=== PATIENT | male | born 2005 | race African-American/Black ===

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

== ENCOUNTER 2024-11-01 06:04 | Emergency (ER) | payer OTHER, SELFPAY ==
--- OUTSIDE RECORDS SUMMARY | 2024-11-01 06:05 | XMS_ITS | Clinical Summary ---
Author Organization [facility] Address [address] [place] [address] Care Team Providers Care Quartz Miner Blasting Name Role Phone Unavailable Primary Care Provider Unavailabl e Source Comments [facility],non-owned Affiliates and Associated Physician Practices is amultiple site organization consisting of ambulatory clinics and hospital sitesin [place], [place], [place] and [place]. This disclosure is being madepursuant to the Care Everywhere program and may not contain all information available regarding this patient. Last updated 18.[facility] Allergies No known active allergies Medications * Be aware that medications may not be up to date on this document. Alwaysverify current medications with the patient. albuterol HFA (VENTOLIN HFA) 8 gram inhaler Inhale 2 Puffs by mouth as needed Active albuterol (PROVENTIL;EARNESTINE NISHANT) (2.5 MG/3ML) 0.083% nebulizer solution Inhale by mouth 4 times daily as needed. Active loratadine (CLARITIN) 10 MG tablet Take 10 mg by mouth once daily as needed. Active mometasone (ASMANEX) 220 MCG/INH inhaler Inhale 1 Puff by mouth once daily. 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 Gender Identity Not on file Sexual Orientation Not on file Last Filed Vital Signs Vital Sign Reading Time Taken Comments Blood Pressure 116/70 04/02/2013 9:39 AM CHAMBER WORKER Pulse 66 04/02/2013 9:39 AM CHAMBER WORKER Temperature - - Respiratory Rate 28 04/02/2013 9:39 AM CHAMBER WORKER Oxygen Saturation 100% 04/02/2013 9:39 AM CHAMBER WORKER Inhaled Oxygen Concentration - - Weight 34.9 kg (76 lb 15.1 oz) 04/02/2013 9:39 A M CHAMBER WORKER Height 140.7 cm (4' 7.39) 04/02/2013 9:39 AM CS T Body Mass Index 17.63 04/02/2013 9:39 AM CHAMBER WORKER Plan of Treatment Health Maintenance Due Date Last Done Comments HIV SCREENING 2018 HPV VACCINE (1 - Male 3-dose series) 2018 MENINGOCOCCAL (Group B) VACC INE SHARED DECISION-MAKING (1 of 2 - Standard) 2019 HEPATITIS C SCREENING 07/02/2021 DTAP/TDAP/TD VACCINES (1 - Tdap) 2022 HEPATITIS B VACCINE (1 of 3 - 19+ 3-dose series) 2022 COVID-19 VACCINE (1 - 2023-2 5 season) 2024 DEPRESSION SCREENING 05/21/2024 INFLUENZA VACCINE (Season Ended) 2025 ZOSTER VACCINE (1 of 2) 2053 HIB VACCINE Aged Out No longer eligi ble based on patient's age to complete this topic MENINGOCOCCAL GROUPS A/C/Y/W VACCINE Aged Out No longer eligible b ased on patient's age to complete this topic PNEUMOCOCCAL VACCINE Aged Out No long er eligible based on patient's age to complete this topic Insurance MEDICAID - [place] [facility]
--- OUTSIDE RECORDS SUMMARY | 2024-11-01 06:05 | XMS_ITS | Continuity of Care Document ---
Author Organization [facility] Address [address] [place] [address] Phone Care Team Providers Care Enterostomal Nurse Name Role Phone Chairez OD, Marek Unavailable Unavailable Procedures Procedure Date Eye Exam, New Patient Refraction Advance Directives Directive Yes / No Effective Date File Name No Information Encounters Encounter Description Practice Location Reason(s) For Visit Diagnoses Date Provider Providers Copied on Encounter [facility], [address], [place], [place], [id number], [place] tel:[phone] [facility] No Information 6-200 9 Chairez OD Marek. [address] , [address], [place], [address], [place]. tel:[phone] Family History Family Member Type Diagnosis Age At Onset No Information Payers Payer name Insurance type Covered republican ID Authoriza tiaubrey(s) Medicaid [facility] [id number] Social History Type Description Quantity Date Captured [...]
[2024-11-01 06:07] VITALS: BP 145/83; PULSE 81; RESP 15; TEMP 36.6; O2SAT 100
--- NOTE | 2024-11-01 06:12 | ED_ITS ---
HPI - Skin/Abscess/Foreign Bdy General Chief complaint: Skin/Abscess/Foreign Body Stated complaint: popped pimple on lip and has swelling Time Seen by Provider: 11/01/24 06:13 History of Present Illness HPI narrative: Patient popped a pimple below his lip recently and noticed it made his lower lip swell a bit; this has now resolved. No pain; no fevers. Related Data Allergies Allergy/AdvReac Type Severity Reaction Status Date / Time No Known Allergies Allergy Verified 07/03/22 07:50 Review of Systems Review of Systems: All systems reviewed & are unremarkable except as noted in HPI and below [facility] Social History Social History (Updated 04/19/22 @ 22:24 by Srinivasan Bill MD) Social History: Denies use of alcohol tobacco or drugs Exam Narrative: EXAMINATION OF ORGAN SYSTEMS/BODY AREAS: Constitutional: Vital signs per nursing GENERAL:[No acute distress, non-toxic appearing.] HEAD: Normal with no signs of head trauma. EYES: EOMI, conjunctiva normal ENT: No trismus; no lip swelling; no tenderness at all; tiny scab below lip LUNGS: Nonlabored breathing. HEART: [Regular rate and rhythm] ABD: [Soft], [nontender to palpation] EXT: Normal range of motion SKIN: Tiny scab below lip that looks well-healed; non tender and no induration NEURO: [Alert and oriented x 3. No gross focal sensory or strength deficits.] PSYCH: Normal affect Course Vital Signs Vital signs: Vital Signs Temperature 98 F 11/01/24 06:07 Pulse Rate 81 11/01/24 06:07 Respiratory Rate 15 11/01/24 06:07 Blood Pressure 145/83 H 11/01/24 06:07 Pulse Oximetry 100 11/01/24 06:07 Oxygen Delivery Room Air 11/01/24 06:07 Temperature 98 F 11/01/24 06:07 Pulse Rate 81 11/01/24 06:07 Respiratory Rate 15 11/01/24 06:07 Blood Pressure 145/83 H 11/01/24 06:07 Pulse Oximetry 100 11/01/24 06:07 Oxygen Delivery Room Air 11/01/24 06:07 MDM - Skin/Abscess/Foreign Bdy MDM Narrative Medical decision making narrative: Patient popped a pimple below his lip recently and noticed it made his lower lip swell a bit; this has now resolved. No pain; no fevers. Very well appearing here without any induration or tenderness or lip swelling on exam, just tiny scab where pimple was. Agreeable to outpt mgmt and return precautions as needed. Stable for dc. Discharge Plan Discharge Clinical Impression: Skin pimple Patient Disposition: Home Condition: Stable Instructions: Acne (ED) Additional Instructions: Try not to pop any pimple in the future. You can follow-up with primary care doctor or accounts receivable associate. You can always return to the emergency room for any further issues. Patient Language: Russian Prescriptions: No Action ibuprofen 800 mg tablet 800 mg PO TID PRN (Reason: pain) 7 Days Qty: 21 0RF acetaminophen 500 mg tablet 1,000 mg PO TID PRN (Reason: carlos) 7 Days Qty: 42 0RF Follow-up/Referrals: Miller Li MD [Physician] - 2 Days Misael Logan MD [Primary Care Provider] -
--- OUTSIDE RECORDS SUMMARY | 2024-11-01 06:16 | XMS_ITS | Continuity of Care Document ---
Author Organization [facility] Address [address] [place] [address] Phone Care Team Providers Care Director Of Broadcast Name Role Phone Chairez OD, Marek Unavailable Unavailable Procedures Procedure Date Eye Exam, New Patient Refraction Advance Directives Directive Yes / No Effective Date File Name No Information Encounters Encounter Description Practice Location Reason(s) For Visit Diagnoses Date Provider Providers Copied on Encounter [facility], [address], [place], [place], [id number], [place] tel:[phone] [facility] No Information 6-200 9 Chairez OD Marek. [address] , [address], [place], [address], [place]. tel:[phone] Family History Family Member Type Diagnosis Age At Onset No Information Payers Payer name Insurance type Covered green party ID Authoriza tiaubrey(s) [facility] [id number] Social History Type Description Quantity Date Captured [...]
== END 2024-11-01 06:26 | disposition home or self-care (01) ==
LOC: ANHED 06:14
PROVIDERS: Emergency Provider Emergency Medicine; PCP Pediatrics
DX: R23.8 Other skin changes (principal)
CPT/HCPCS: 99281

== ENCOUNTER 2025-01-18 16:26 | Emergency (ER) | payer OTHER, SELFPAY ==
--- OUTSIDE RECORDS SUMMARY | 2008-11-13 07:30 | XMS_ITS | Continuity of Care Document ---
Author Organization [facility] Address [address] [place] [address] Phone Care Team Providers Care Outpatient Physical Therapist Name Role Phone Chairez OD, Marek Unavailable Unavailable Procedures Procedure Date Eye Exam, New Patient Refraction Advance Directives Directive Yes / No Effective Date File Name No Information Encounters Encounter Description Practice Location Reason(s) For Visit Diagnoses Date Provider Providers Copied on Encounter [facility], [address], [place], [place], [id number], [place] tel:[phone] [facility] No Information 6-200 9 Chairez OD Marek. [address] , [address], [place], [address], [place]. tel:[phone] Family History Family Member Type Diagnosis Age At Onset No Information Payers Payer name Insurance type Covered constitution party ID Authoriza tiaubrey(s) Medicaid [facility] [id number] Social History Type Description Quantity Date Captured Comments Sex Male Smoking Status No Information Chief Complaint And Reason For Visit No Information Reason For Referral Reason For Referral No Information History Of Present Illness Encounter Date Complaint History Of Prese nt Illness No Information Functional Status Date Functional Assessmen t No Information Instructions Date Instruction Additional Infor mation No Information Assessments Type Assessment Date No Information Patient Care Teams Name Effective Dates (start - stop) Status Members No Information
--- OUTSIDE RECORDS SUMMARY | 2008-11-13 07:30 | XMS_ITS | Continuity of Care Document ---
Author Organization [facility] Address [address] [place] [address] Phone Care Team Providers Care Commissions Coordinator Name Role Phone Chairez OD, Marek Unavailable Unavailable Procedures Procedure Date Eye Exam, New Patient Refraction Advance Directives Directive Yes / No Effective Date File Name No Information Encounters Encounter Description Practice Location Reason(s) For Visit Diagnoses Date Provider Providers Copied on Encounter [facility], [address], [place], [place], [id number], [place] tel:[phone] [facility] No Information 6-200 9 Chairez OD Marek. [address] , [address], [place], [address], [place]. tel:[phone] Family History Family Member Type Diagnosis Age At Onset No Information Payers Payer name Insurance type Covered green party ID Authoriza tiaubrey(s) Medicaid [facility] [id number] Social History Type Description Quantity Date Captured [...]
--- OUTSIDE RECORDS SUMMARY | 2025-01-18 16:29 | XMS_ITS | Clinical Summary ---
Author Organization [facility] Address [address] [place] [address] Care Team Providers Care Magnetic Resonance Imaging Coordinator Name Role Phone Unavailable Primary Care Provider Unavailabl e Source Comments [facility],non-owned Affiliates and Associated Physician Practices is amultiple site organization consisting of ambulatory clinics and hospital sitesin [place], [place], [place] and [place]. This disclosure is being madepursuant to the Care Everywhere program and may not contain all information available regarding this patient. Last updated 18.[facility] Allergies No known active allergies Medications * [...] on file Legal Sex Male 6:44 AM ADMINISTRATIVE SUPPORT ASSISTANT Gender Identity Not on file Sexual Orientation Not on file Last Filed Vital Signs Vital Sign Reading Time Taken Comments Blood Pressure 116/70 04/02/2013 9:39 AM ADMINISTRATIVE SUPPORT ASSISTANT Pulse 66 04/02/2013 9:39 AM ADMINISTRATIVE SUPPORT ASSISTANT Temperature - - Respiratory Rate 28 04/02/2013 9:39 AM ADMINISTRATIVE SUPPORT ASSISTANT Oxygen Saturation 100% 04/02/2013 9:39 AM ADMINISTRATIVE SUPPORT ASSISTANT Inhaled Oxygen Concentration - - Weight 34.9 kg (76 lb 15.1 oz) 04/02/2013 9:39 A M ADMINISTRATIVE SUPPORT ASSISTANT Height 140.7 cm (4' 7.39) 04/02/2013 9:39 AM CS T Body Mass Index 17.63 04/02/2013 9:39 AM ADMINISTRATIVE SUPPORT ASSISTANT Plan of Treatment Health Maintenance Due Date [...] season) 2024 DEPRESSION SCREENING 05/21/2024 INFLUENZA VACCINE (#1) 2025 ZOSTER VACCINE (1 of 2) 2053 HIB VACCINE Aged Out No longer eligi ble based on patient's age to complete this topic MENINGOCOCCAL GROUPS A/C/Y/W VACCINE Aged Out No longer eligible b ased on patient's age to complete this topic PNEUMOCOCCAL VACCINE Aged Out No long er eligible based on patient's age to complete this topic Insurance [place]ID - [place] [facility]
[2025-01-18 16:44] VITALS: BP 137/83; PULSE 68; RESP 17; TEMP 36.6; O2SAT 100
--- NOTE | 2025-01-18 17:57 | PC.NURSE ---
Pt left ED in NAD
--- OUTSIDE RECORDS SUMMARY | 2025-01-18 18:05 | XMS_ITS | Clinical Summary ---
Author Organization [facility] Address [address] [place] [address] Care Team Providers Care Payroll And Benefits Coordinator Name Role Phone Unavailable Primary Care Provider Unavailabl e Source Comments [facility],non-owned Affiliates and Associated Physician Practices is amultiple site organization consisting of ambulatory clinics and hospital sitesin [place], [place] and [place]. This disclosure is being madepursuant to the Care Everywhere program and may not contain all information available regarding this patient. Last updated 18.[facility] Allergies No known active allergies Medications * [...] on file Legal Sex Male 6:44 AM FAMILY DEVELOPMENT SPECIALIST Gender Identity Not on file Sexual Orientation Not on file Last Filed Vital Signs Vital Sign Reading Time Taken Comments Blood Pressure 116/70 04/02/2013 9:39 AM FAMILY DEVELOPMENT SPECIALIST Pulse 66 04/02/2013 9:39 AM FAMILY DEVELOPMENT SPECIALIST Temperature - - Respiratory Rate 28 04/02/2013 9:39 AM FAMILY DEVELOPMENT SPECIALIST Oxygen Saturation 100% 04/02/2013 9:39 AM FAMILY DEVELOPMENT SPECIALIST Inhaled Oxygen Concentration - - Weight 34.9 kg (76 lb 15.1 oz) 04/02/2013 9:39 A M FAMILY DEVELOPMENT SPECIALIST Height 140.7 cm (4' 7.39) 04/02/2013 9:39 AM CS T Body Mass Index 17.63 04/02/2013 9:39 AM FAMILY DEVELOPMENT SPECIALIST Plan of Treatment Health Maintenance Due Date [...] complete this topic Insurance [place] - [place] [facility]
== END 2025-01-18 18:13 | disposition left against medical advice (07) ==
PROVIDERS: PCP Pediatrics
DX: F41.9 Anxiety disorder, unspecified (principal)
CPT/HCPCS: 99199

== ENCOUNTER 2025-02-27 03:06 | Emergency (ER) | payer OTHER, SELFPAY ==
[2025-02-27] VITALS (7 sets, daily range): BP systolic 125–150; BP diastolic 75–82; PULSE 78–108; RESP 16–22; TEMP 36.3; O2SAT 25–100
--- NOTE | ~2025-02-27 | XR_ITS ---
Examination: XR chest 2V Clinical History: difficulty breathing Comparison: None Technique: PA and Lateral Findings: Cardiomediastinal silhouette normal size and configuration. Lungs clear. No acute bony abnormality. IMPRESSION: 1. No acute cardiopulmonary findings. Reviewed, dictated and finalized at location R.
--- OUTSIDE RECORDS SUMMARY | 2025-02-27 03:08 | XMS_ITS | Clinical Summary ---
Author Organization [facility] Address [address] [place] [address] Care Team Providers Care Distribution Sales Manager Name Role Phone Unavailable Primary Care Provider Unavailabl e Source Comments [facility],non-owned Affiliates and Associated Physician Practices is amultiple site organization consisting of ambulatory clinics and hospital sitesin [place], [place], [place] and [place]. This disclosure is being madepursuant to the Care Everywhere program and may not contain all information available regarding this patient. Last updated 18.[facility] [email or web address] Allergies No known active allergies Medications * [...] on file Legal Sex Male 6:44 AM PLAY READER Gender Identity Not on file Sexual Orientation Not on file Last Filed Vital Signs Vital Sign Reading Time Taken Comments Blood Pressure 116/70 04/02/2013 9:39 AM PLAY READER Pulse 66 04/02/2013 9:39 AM PLAY READER Temperature - - Respiratory Rate 28 04/02/2013 9:39 AM PLAY READER Oxygen Saturation 100% 04/02/2013 9:39 AM PLAY READER Inhaled Oxygen Concentration - - Weight 34.9 kg (76 lb 15.1 oz) 04/02/2013 9:39 A M PLAY READER Height 140.7 cm (4' 7.39) 04/02/2013 9:39 AM CS T Body Mass Index 17.63 04/02/2013 9:39 AM PLAY READER Plan of Treatment Health Maintenance Due Date Last Done Comments HIV SCREENING 2018 HPV VACCINE (1 - Male 3-dose series) 2018 MENINGOCOCCAL (Group B) VACC INE SHARED DECISION-MAKING (1 of 2 - Standard) 2019 HEPATITIS C SCREENING 07/02/2021 DTAP/TDAP/TD VACCINES (1 - Tdap) 2022 HEPATITIS B VACCINE (1 of 3 - 19+ 3-dose series) 2022 DEPRESSION SCREENING 05/21/2024 COVID-19 VACCINE (1 - 2023-2 5 season) 2025 INFLUENZA VACCINE (#1) 2025 ZOSTER VACCINE (1 [...] complete this topic Insurance MEDICAID - [place] [facility]
--- NOTE | 2025-02-27 07:21 | ED.GENADULT ---
HPI - General Adult General Chief complaint: Shortness of Breath/Dyspnea Stated complaint: difficulty breathing Time Seen by Provider: 02/27/25 06:58 History of Present Illness HPI narrative: [age] year old male presents to the emergency department for evaluation worsening shortness of breath. Patient states that he was resting last night when he had onset of cough and wheeze. Patient does have a prior history of asthma as a child but states he has not required albuterol inhaler for a very long time. Patient states he does not smoke and does not vape. Patient states he did work out early in the day and denies any chest pain or shortness of breath at that time. Patient denies any prior cardiac history. Patient is well-appearing at time of evaluation but does have some expiratory wheeze. Related Data Allergies Allergy/AdvReac Type Severity Reaction Status Date / Time No Known Allergies Allergy Verified 01/18/25 16:45 Review of Systems Review of Systems: All systems reviewed & are unremarkable except as noted in HPI and below PMFSH Social History Social History (Updated 04/19/22 @ 22:24 by Srinivasan Bill MD) Social History: Denies use of alcohol tobacco or drugs Exam Narrative: APPEARANCE: Well appearing, no pain, no distress, well-nourished. HEAD: normocephalic, atraumatic. EYES: PERRLA/EOMI, conjunctivae clear. NOSE: Normal no drainage EARS:TMS clear with good light reflex. THROAT: Pharynx clear, no exudate. NECK: Supple. No adenopathy, no masses. RESPIRATORY: Expiratory wheeze CARDIOVASCULAR: Regular rate and rhythm without murmurs rubs or gallops. ABDOMINAL: Soft, nontender, nondistended, normal bowel sounds MUSCULOSKELETAL: Moves all extremities. Strength/ROM intact, No edema, No calf tenderness. NEURO: Alert. Cranial nerves II through XII intact. Good gait. Good coordination SKIN: Warm, dry. Normal Color Course Vital Signs Vital signs: Vital Signs Temperature 97.4 F L 02/27/25 03:19 Pulse Rate 97 02/27/25 03:19 Respiratory Rate 20 02/27/25 03:19 Blood Pressure 146/78 H 02/27/25 03:19 Pulse Oximetry 94 02/27/25 03:19 Oxygen Delivery Room Air 02/27/25 03:19 Temperature 97.4 F L 02/27/25 03:19 Pulse Rate 108 H 02/27/25 08:39 Respiratory Rate 16 02/27/25 08:39 Blood Pressure 142/82 H 02/27/25 08:39 Pulse Oximetry 25 L 02/27/25 08:39 Oxygen Delivery Room Air 02/27/25 08:36 Medical Decision Making MDM Narrative Medical decision making narrative: 19-year-old male prior history of asthma presents emergency department for evaluation for shortness of breath and wheeze. Patient did have expiratory wheeze bilaterally on exam. Patient was negative for COVID flu RSV. Chest x-ray shows no acute cardiopulmonary abnormality. Patient was treated with 5 mg nebulized albuterol and on re-evaluation patient states he does feel improved. Patient is requesting discharge home. Patient will be started on a short course of steroid and will be provided visual inhaler for home. All questions concerns were addressed. Patient was well-appearing at time of discharge. Differential Diagnosis Differential Diagnosis: Asthma, pneumonia, COVID, RSV, influenza, seasonal allergies Vital Signs Vital Signs: Vital Signs Temperature 97.4 F L 02/27/25 03:19 Pulse Rate 97 02/27/25 03:19 Respiratory Rate 20 02/27/25 03:19 Blood Pressure 146/78 H 02/27/25 03:19 Pulse Oximetry 94 02/27/25 03:19 Oxygen Delivery Room Air 02/27/25 03:19 Temperature 97.4 F L 02/27/25 03:19 Pulse Rate 108 H 02/27/25 08:39 Respiratory Rate 16 02/27/25 08:39 Blood Pressure 142/82 H 02/27/25 08:39 Pulse Oximetry 25 L 02/27/25 08:39 Oxygen Delivery Room Air 02/27/25 08:36 Lab Data Labs: Lab Results 02/27/25 Range/Units 07:24 Influenza A (RT-PCR) Negative (Negative) Influenza B (RT-PCR) Negative (Negative) RSV (RT-PCR) Negative (Negative) SARS-CoV-2 RNA (RT-PCR) Negative (Negative) Imaging Data My impression: Chest x-ray No acute cardiopulmonary abnormality Radiologist's impression: Impressions Chest X-Ray 02/27/25 06:20 IMPRESSION: 1. No acute cardiopulmonary findings. Discharge Plan Discharge Clinical Impression: Acute bronchitis with asthma Patient Disposition: Home Condition: Stable Instructions: Antibiotic Form Additional Instructions: Prednisone as directed for the next 5 days. Albuterol inhaler as directed. Have close follow-up with your primary care physician. Patient Language: [place] Prescriptions: New prednisone 50 mg tablet 50 mg PO DAILY 5 Days Qty: 5 0RF albuterol sulfate 90 mcg/actuation HFA aerosol inhaler 1 puff inhalation QID Qty: 6.7 0RF No Action ibuprofen 800 mg tablet 800 mg PO TID PRN (Reason: pain) 7 Days Qty: 21 0RF acetaminophen 500 mg tablet 1,000 mg PO TID PRN (Reason: carlos) 7 Days Qty: 42 0RF Follow-up/Referrals: PHYSICIAN,HANDICRAFTS TEACHER [Primary Care Provider, Internal Medicine]
[2025-02-27] MEDS: ALBUTEROL SULFATE NEB 2.5 MG/3 ML INH 5 MG INHALATION (07:35)
[2025-02-27 08:04] LABS: Influenza A QL RT-PCR Negative (Negative); Influenza B QL RT-PCR Negative (Negative); RSV RNA, RT-PCR Negative (Negative); SARS-CoV-2 RNA PCR Negative (Negative)
--- NOTE | 2025-02-27 08:38 | PC.NURSE ---
Pt. reports no SOB. Breathing no longer labored. Pt. states I feel good enough to go home.
== END 2025-02-27 08:45 | disposition home or self-care (01) ==
PROVIDERS: Emergency Provider Emergency Medicine
DX: J20.9 Acute bronchitis, unspecified (principal); J45.909 Unspecified asthma, uncomplicated; Z20.822 Contact with and (suspected) exposure to COVID-19
CPT/HCPCS: 71046; 87637; 94640; 99283

== ENCOUNTER 2025-03-25 16:43 | Emergency (ER) | payer OTHER, SELFPAY ==
--- NOTE | ~2025-03-25 | XR_ITS ---
EXAM/PROCEDURE: XR chest 2V HISTORY: Cough. Right lateral CHEST WALL pain, rib suspected. COMPARISON: None available. TECHNIQUE: Two view(s) of the chest. FINDINGS: LUNGS: Clear of acute processes. PLEURAL SPACES: Clear. No evidence of fluid or pneumothorax. HEART/ MEDIASTINUM: Normal in appearance. SOFT TISSUES: No significant findings. BONES: No acute osseous abnormality. IMPRESSION: No acute findings. Reviewed, dictated and finalized at location A. CLERK IMPRESSION: No acute findings.
--- NOTE | 2025-03-25 16:44 | ED.GENADULT ---
HPI - General Adult General Chief complaint: Upper Respiratory Infection Stated complaint: Chest Pain Time Seen by Provider: 03/25/25 16:44 Source: patient Mode of arrival: ambulatory Limitations: no limitations History of Present Illness HPI narrative: Pt is a 19 y/o male presenting with c/o atraumatic, R. lateral rib pain. Pain began a few days ago. Additional sx reported include cough. No hemoptysis. NO lower extremity edema. Pain is worse with deep breathing. No tx initiated [employer]. No hx of similar. No fevers, chills, sweats, unintentional weight loss, or any other complaints. Related Data Allergies Allergy/AdvReac Type Severity Reaction Status Date / Time No Known Allergies Allergy Verified 03/25/25 16:47 Review of Systems Review of Systems: CONSTITUTIONAL: Denies body aches, fever, chills, or sweats. EYES: Denies visual changes, redness, or discharge. ENT: Denies rhinorrhea, congestion, sore throat, or otalgia. CARDIOVASCULAR: Denies chest pain, palpitations, or edema. RESPIRATORY: reports cough denies dyspnea, hemoptysis. GASTROINTESTINAL: Denies abdominal pain, nausea, vomiting, or diarrhea. GENITOURINARY: Denies dysuria or hematuria. SKIN: Denies rash, itching, or wounds. MUSCULOSKELETAL: Denies back pain, joint pain, or myalgia. NEUROLOGIC: Denies headache, numbness, tingling, or weakness. PSYCH: Denies depression or anxiety. All systems reviewed & are unremarkable except as noted in HPI and below PMFSH Social History Social History (Updated 04/19/22 @ 22:24 by Srinivasan Bill MD) Social History: Denies use of alcohol tobacco or drugs Exam Narrative: GENERAL: Well-appearing, well-nourished, and in no acute distress. HEAD: Normocephalic, atraumatic. EYES: EOMI. No redness or drainage. Conjunctivae normal. ENT: Mucous membranes pink and moist. Nares clear. No rhinorrhea. TMs normal bilaterally. Throat normal. Uvula midline. NECK: Normal AROM. Supple. No lymphadenopathy. CHEST: No respiratory distress. End-phase expiratory wheeze noted to RLL HEART: Regular rate and rhythm. No murmur appreciated. Normal peripheral pulses. ABDOMEN: Soft, nontender, nondistended, normal active bowel sounds. MUSCULOSKELETAL: No bony tenderness. EXTREMITIES: Normal range of motion. No edema. SKIN: Warm, dry, no rash. Capillary refill normal. Normal skin turgor. NEURO: No focal deficits. Alert and oriented x3. Gait steady. PSYCH: Normal affect. No signs of depression or anxiety. Chest: Chest/axillae images:  1. TTP, no crepitus, erythema, ecchymosis, edema Course Course Level of Care: Express Care Visit Vital Signs Vital signs: Vital Signs Temperature 98 F 03/25/25 16:46 Pulse Rate 61 03/25/25 16:46 Respiratory Rate 16 03/25/25 16:46 Blood Pressure 130/85 03/25/25 16:46 Pulse Oximetry 99 03/25/25 16:46 Oxygen Delivery Room Air 03/25/25 16:46 Temperature 98 F 03/25/25 16:46 Pulse Rate 61 03/25/25 16:46 Respiratory Rate 16 03/25/25 16:46 Blood Pressure 130/85 03/25/25 16:46 Pulse Oximetry 99 03/25/25 16:46 Oxygen Delivery Room Air 03/25/25 16:46 Medical Decision Making [facility] Narrative Medical decision making narrative: Discussed elevated blood pressure readings with patient and advised daily BP monitoring and f/u with PCP if persisting. Vital Signs Vital Signs: Vital Signs Temperature 98 F 03/25/25 16:46 Pulse Rate 61 03/25/25 16:46 Respiratory Rate 16 03/25/25 16:46 Blood Pressure 130/85 03/25/25 16:46 Pulse Oximetry 99 03/25/25 16:46 Oxygen Delivery Room Air 03/25/25 16:46 Temperature 98 F 03/25/25 16:46 Pulse Rate 61 03/25/25 16:46 Respiratory Rate 16 03/25/25 16:46 Blood Pressure 130/85 03/25/25 16:46 Pulse Oximetry 99 03/25/25 16:46 Oxygen Delivery Room Air 03/25/25 16:46 Imaging Data Attestation: I personally reviewed and interpreted this imaging study as follows: Discharge Plan Discharge Clinical Impression: Rib pain on right side, Elevated blood pressure reading in office without diagnosis of hypertension Cough Qualifiers: Cough type: acute Qualified Code(s): R05.1 - Acute cough Patient Disposition: Home Condition: Stable Instructions: Antibiotic Form, Pleurisy (DC) Additional Instructions: Go straight to ER should your symptoms become worse or should any new symptoms develop Patient Language: Ug[place] Prescriptions: New ibuprofen 600 mg tablet 600 mg PO TID Qty: 30 0RF methocarbamol 500 mg tablet 500 mg PO BID Qty: 10 0RF No Action ibuprofen 800 mg tablet 800 mg PO TID PRN (Reason: pain) 7 Days Qty: 21 0RF acetaminophen 500 mg tablet 1,000 mg PO TID PRN (Reason: carlos) 7 Days Qty: 42 0RF albuterol sulfate 90 mcg/actuation HFA aerosol inhaler 1 puff inhalation QID Qty: 6.7 0RF Follow-up/Referrals: UNKNOWN,DOCTOR [Non-Staff] - 03/26/25 Time of Disposition: 17:09
[2025-03-25 16:46] VITALS: BP 130/85; PULSE 61; RESP 16; TEMP 36.6; O2SAT 99
== END 2025-03-25 17:16 | disposition home or self-care (01) ==
PROVIDERS: Emergency Provider Registered Nurse
DX: R07.89 Other chest pain (principal); R03.0 Elevated blood-pressure reading, without diagnosis of hypertension; R05.1 Acute cough
CPT/HCPCS: 71046; 99213; G0463